=== PATIENT | male | born 1955 ===

== ENCOUNTER 2024-05-15 06:00 | Day surgery (SDC) | payer OTHER ==
[2024-05-15] MEDS ORDERED: CEFAZOLIN SODIUM 1,000 MG VIAL IV SCH (10:00)
== END 2024-05-15 15:05 | disposition home or self-care (01) ==
LOC: CIR.AMB 06:00
PROVIDERS: ATTEND Surgery
DX: K40.20 Bilateral inguinal hernia, without obstruction or gangrene, not specified as recurrent (principal); Z91.02 Food additives allergy status
CPT/HCPCS: 49650; C1781